=== PATIENT | male | born 1980 | race Two or more races ===

== ENCOUNTER 2020-05-28 04:34 | Emergency (ER) | payer SELFPAY ==
[~2020-05-28] VITALS: Ht 175.3 cm; Wt 91.0 kg
[2020-05-28] MEDS ORDERED: DIAZEPAM 5 MG/ML 2ML CPJ IM ONE (07:00)
[2020-05-28] MEDS ORDERED: OXYCODONE HCL 10MG TABLET SR 12HR PO ONE (07:00)
[2020-05-28 08:00] VITALS: BP 146/90
== END 2020-05-28 08:55 | disposition home or self-care (01) ==
LOC: ER 04:34
DX: M54.5 Low back pain (principal); E11.9 Type 2 diabetes mellitus without complications
CPT/HCPCS: 96372; 99283; J3360; Z7610

== ENCOUNTER 2020-08-12 20:12 | Emergency (ER) | payer SELFPAY ==
[~2020-08-12] VITALS: Ht 165.1 cm; Wt 114.0 kg
[2020-08-12 22:34] LABS: CLARITY URINE CLOUDY (CLEAR); COLOR URINE YELLOW (YELLOW); KETONES URINE TRACE (NEGATIVE); LEUKOCYTE ESTERASE URINE 1+ (NEGATIVE); NITRITE URINE NEGATIVE (NEGATIVE); OCCULT BLOOD URINE 2+ (NEGATIVE); PH URINE 5.5 (4.5-8.0); PROTEIN URINE NEGATIVE (NEGATIVE); SPECIFIC GRAVITY URINE 1.034 (1.005-1.030); UROBILINOGEN URINE 0.2 E.U./dL (0.2-1.0)
[2020-08-12 23:08] LABS: BASOPHILS % 0.7 % (0.0-2.0); EOSINOPHILS % 2.1 % (0.0-5.0); HEMATOCRIT. 44.3 % (42.0-52.0); HEMOGLOBIN. 16.1 g/dL (14.0-18.0); LYMPHOCYTES % 28.4 % (20.0-50.0); MEAN CORPUSCULAR HEMOGLOBIN 31.2 pg (28.0-32.0); MEAN CORPUSCULAR VOLUME 85.7 fL (80.0-94.0); MEAN PLATELET VOLUME 9.4 fl (7.4-10.4); MONOCYTES % 4.8 % (2.0-8.0); PLATELET 166 x1000/uL (130-400); RED BLOOD CELL COUNT 5.17 mill/uL (4.7-6.1); RED CELL DISTRIBUTION WIDTH 12.9 % (11.6-14.6)
[2020-08-12 23:11] LABS: CHLORIDE 106 mEq/L (98-107)
[2020-08-12 23:15] LABS: INR 0.9; PROTHROMBIN TIME 10.2 sec (9.6-11.0)
[2020-08-12] MEDS ORDERED: CEFP200T14 MT (23:57)
[2020-08-12] MEDS ORDERED: CLOT113C TP (23:59)
[2020-08-13] MEDS ORDERED: METF-414 MT
[2020-08-13 00:32] VITALS: BP 129/78
== END 2020-08-13 00:33 | disposition home or self-care (01) ==
LOC: ER 20:12
DX: N48.1 Balanitis (principal); R31.9 Hematuria, unspecified; M54.5 Low back pain; E11.9 Type 2 diabetes mellitus without complications; Z79.84 Long term (current) use of oral hypoglycemic drugs
CPT/HCPCS: 36415; 74176; 80053; 81003; 85025; 86592; 93005; 99285

== ENCOUNTER 2022-10-18 18:02 | Emergency (ER) | payer MEDICAID ==
[~2022-10-18] VITALS: Ht 165.1 cm; Wt 116.0 kg
[~2022-10-18 18:02] MED LIST: CEFP200T14 MT; CLOT113C TP; METF-414 MT
[2022-10-18 18:55] LABS: BASOPHILS % 0.8 % (0.0-2.0); EOSINOPHILS % 2.4 % (0.0-5.0); HEMATOCRIT. 44.7 % (42.0-52.0); HEMOGLOBIN. 15.7 g/dL (14.0-18.0); LYMPHOCYTES % 26.4 % (20.0-50.0); MEAN CORPUSCULAR HEMOGLOBIN 31.1 pg (28.0-32.0); MEAN CORPUSCULAR VOLUME 88.6 fL (80.0-94.0); MEAN PLATELET VOLUME 8.9 fl (7.4-10.4); MONOCYTES % 5.8 % (2.0-8.0); NEUTROPHILS % 64.6 % (40.0-76.0); PLATELET 193 x1000/uL (130-400); RED BLOOD CELL COUNT 5.05 mill/uL (4.7-6.1); RED CELL DISTRIBUTION WIDTH 13.3 % (11.6-14.6)
[2022-10-18 19:13] LABS: CLARITY URINE CLEAR (CLEAR); COLOR URINE YELLOW (YELLOW); KETONES URINE 1+ (NEGATIVE); LEUKOCYTE ESTERASE URINE NEGATIVE (NEGATIVE); NITRITE URINE NEGATIVE (NEGATIVE); OCCULT BLOOD URINE NEGATIVE (NEGATIVE); PROTEIN URINE TRACE (NEGATIVE); SPECIFIC GRAVITY URINE 1.032 (1.005-1.030)
[2022-10-18] MEDS ORDERED: NITROGLYCERIN 0.4MG TABLET SL SL PRN (19:15)
[2022-10-18] MEDS ORDERED: ASPIRIN 325MG EC TABLET PO ONE (19:15)
[2022-10-18 19:18] LABS: CHLORIDE 105 mEq/L (98-107)
[2022-10-19 02:57] VITALS: BP 121/74
== END 2022-10-19 02:58 | disposition home or self-care (01) ==
LOC: ER 18:02
DX: R07.89 Other chest pain (principal); R42 Dizziness and giddiness; E11.9 Type 2 diabetes mellitus without complications
CPT/HCPCS: 36415; 71045; 80053; 81003; 83880; 84484; 85025; 93005; 99285